=== PATIENT | female | born 1960 | race Caucasian/White ===

== ENCOUNTER 2019-01-11 19:28 | Emergency (ER) | payer BC, OTHER ==
[~2019-01-11] VITALS: Ht 175.3 cm; Wt 85.8 kg
[2019-01-11 19:31] VITALS: BP 161/71
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
[2019-01-11] MEDS ORDERED: HYDROcodone/APAP 5/325 TABLET PO ONE (21:30)
== END 2019-01-11 21:28 | disposition home or self-care (01) ==
LOC: ED 21:15
DX: S62.613A Displaced fracture of proximal phalanx of left middle finger, initial encounter for closed fracture (principal); S20.219A Contusion of unspecified front wall of thorax, initial encounter; Z98.890 Other specified postprocedural states; Z90.710 Acquired absence of both cervix and uterus; V49.49XA Driver injured in collision with other motor vehicles in traffic accident, initial encounter; Y93.89 Activity, other specified; Y92.413 State road as the place of occurrence of the external cause; Y99.8 Other external cause status
CPT/HCPCS: 29130; 71046; 99283

== ENCOUNTER 2019-04-16 09:10 | Emergency (ER) | payer BC, OTHER ==
[~2019-04-16] VITALS: Ht 175.3 cm; Wt 85.5 kg
--- NOTE | 2019-04-16 09:23 | NUR ---
Code Neuro Called @919 Neurology Paged @919 Neurology Returned @[phone]
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
--- NOTE | 2019-04-16 09:27 | NUR ---
Pt to CT via ziyad on zoll accompanied by primary RN Bill
[2019-04-16 09:51] LABS: BASOPHILS # (AUTO) 0.06 x10^3/uL (0-0.1); BASOPHILS % (AUTO) 1 % (0-1); EOSINOPHILS # (AUTO) 0.23 x10^3/uL (0-0.4); EOSINOPHILS % (AUTO) 3 % (1-7); LYMPHOCYTES # (AUTO) 2.22 x10^3/uL (1-3.4); LYMPHOCYTES % (AUTO) 33 % (22-44); MD NO; MEAN CORPUSCULAR HEMOGLOBIN 30.9 pg (27.0-34.8); MEAN CORPUSCULAR HGB CONC 33.8 g/dL (32.4-35.8); MEAN CORPUSCULAR VOLUME 91.6 fL (80-100); MEAN PLATELET VOLUME 8.5 fL (7.4-10.4); MONOCYTES # (AUTO) 0.54 x10^3/uL (0.2-0.8); MONOCYTES % (AUTO) 8 % (2-9); NEUTROPHILS # (AUTO) 3.78 x10^3/uL (1.8-6.8); NEUTROPHILS % (AUTO) 55 % (42-75); PLATELET COUNT 333 x10^3/uL (130-400); RED BLOOD COUNT 4.96 x10^6/uL (3.82-5.3); RED CELL DISTRIBUTION WIDTH 13.6 % (9.6-15.2)
[2019-04-16 09:55] LABS: INTERNATIONAL NORMALIZED RATIO 0.94 (0.93-1.1)
[2019-04-16] MEDS ORDERED: prednisOLONE 15 MG/5 ML ORAL SOLN PO STA (09:55)
[2019-04-16] MEDS ORDERED: OMNIPAQUE 350 MG/ML, 100ML BOTTLE ONE (09:56)
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
[2019-04-16] MEDS ORDERED: FLUO60TA PO (10:01)
[2019-04-16] MEDS ORDERED: MULT-516 PO (10:02)
--- NOTE | 2019-04-16 10:20 | NUR ---
PT TO MRI AT THIS TIME.
[2019-04-16] MEDS ORDERED: GADOTERATE 7.5 MMOL/15 ML SYR ONE (10:55)
[2019-04-16 11:26] VITALS: BP 139/72
--- NOTE | 2019-04-16 11:27 | NUR ---
REC'D RPT FROM VISH HERNANDEZ. ASSUMED PT CARE. PT RTD FROM MRI, RESULTS PENDING. PT VSS, NAD NOTED. CALL [facility]NA W/I REACH
--- NOTE | 2019-04-16 12:26 | NUR ---
Patient/Caregiver given discharge instructions and they have confirmed that they understand the instructions. Patient ambulatory with steady gait.
== END 2019-04-16 12:27 | disposition home or self-care (01) ==
LOC: ED 09:45
DX: R29.810 Facial weakness (principal); G51.0 Bell's palsy; D32.9 Benign neoplasm of meninges, unspecified; Z90.710 Acquired absence of both cervix and uterus
CPT/HCPCS: 36415; 70450; 70496; 70498; 70553; 82330; 82565; 82803; 82947; 82962; 84132; 84295; 85014; 85025; 85610; 85730; 93005; 99285; A9575; J7510; Q9967